=== PATIENT | male | born 1955 | race Caucasian/White ===

== ENCOUNTER 2025-09-14 08:48 | Day surgery (SDC) | payer MEDICARE, BC, SELFPAY ==
[2025-09-14] VITALS (13 sets, daily range): BP systolic 117–141; BP diastolic 78–94; PULSE 62–87; RESP 14–18; TEMP 36.3–37.1; O2SAT 93–99; BMI 28.2
[2025-09-14] MEDS: SODIUM CHLORIDE 0.9 % (FLUSH) 10 ML SYRINGE IVF (09:22)
[2025-09-14] MEDS: LACTATED RINGERS 1000 ML 1,000 ML 100 ML IV ×2 (09:22→13:17)
[2025-09-14] MEDS: BUPIVACAINE 0.25% 30 ML INJECTION (12:20)
--- NOTE | 2025-09-14 13:39 | P.ANES_ITS ---
Anesthesia Charges Start Date/Time Anesthesia Start Date: 09/14/25 Anesthesia Start Time: 11:44 Stop Date/Time Anesthesia Stop Date: 09/14/25 Anesthesia Stop Time: 13:50 Coding CPT Codes CPT Codes: ANESTH SURG LOWER ABDOMEN - 12604 ([id number]) P3 - PATIENT W/SEVERE SYS DISEASE, QK - SUPERVISOR MAINTENANCE 2-4 CNCRNT ANES PROC, QX - HORTICULTURAL TECHNICAL OFFICER SVC W/ MD MED DIRECTION
--- NOTE | 2025-09-14 13:39 | W.ANESCHARGE ---
Anesthesia Charges Start Date/Time Anesthesia Start Date: 09/14/25 Anesthesia Start Time: 11:44 Stop Date/Time Anesthesia Stop Date: 09/14/25 Anesthesia Stop Time: 13:50 Coding CPT Codes CPT Codes: ANESTH SURG LOWER ABDOMEN - 02690 ([id number]) P3 - PATIENT W/SEVERE SYS DISEASE, QK - PRINTING PRESS OPERATOR 2-4 CNCRNT ANES PROC, QX - NURSING CARE ATTENDANT SVC W/ MD MED DIRECTION
--- NOTE | 2025-09-14 13:54 | W.ANESCHARGE ---
Anesthesia Charges Start Date/Time Anesthesia Start Date: 09/14/25 Anesthesia Start Time: 11:44 Stop Date/Time Anesthesia Stop Date: 09/14/25 Anesthesia Stop Time: 13:50 Coding CPT Codes CPT Codes: ANESTH SURG LOWER ABDOMEN - 34192 ([id number]) P2 - PATIENT W/MILD SYST DISEASE
[2025-09-14] MEDS: HYDROCODONE-ACETAMIN 5-325 MG 1 TAB PO (15:17)
--- NOTE | 2025-09-14 16:31 | W.PM.H&PU ---
History & Physical Update History & Physical Update H&P Reviewed and patient assessed: No changes noted
--- NOTE | 2025-09-14 16:31 | PM.GSPRC ---
Operative Note Date of procedure: 09/14/25 Pre-op diagnosis: Right inguinal hernia Post-op diagnosis: Same, indirect Type of Procedure: Laparoscopic converted to open right inguinal hernia repair Indications: Patient is a 69-year-old male who presented to clinic with a symptomatic right inguinal hernia. Please see consultation note regarding full discussion of different treatment options. Risks and benefits of operative intervention were discussed at length with the patient. Risks included but was not limited to: Bleeding, infection, risk of damage to surrounding structures, possible need for additional procedures, possible need to convert to an open operation and postoperative complications such as pneumonia, pulmonary emboli or NV. All questions and concerns were addressed with the patient agreeing to proceed. Procedure Description: After discussing the risks and benefits of the procedure, the patient signed informed consent.? The operative site was marked and the patient was brought to the operating room and placed on the operating table in supine position.? Care was taken to pad the patient's pressure points.?? The patient was then intubated by anesthesia.?? The operative site was then prepped and draped in the usual sterile fashion.? A time-out was then performed. A curvilinear incision was made below the umbilicus. Dissection was carried down to subcutaneous tissue until the anterior rectus fascia was encountered. This was incised off the midline. The rectus muscles were then retracted exposing the posterior fascia. A space maker port with a dissecting balloon was then introduced. The preperitoneal space was inflated under direct vision. The balloon was then removed and the preperitoneal space insufflated. A 10 mm 30 degree scope was then advanced and the area was surveyed for bleeding. Very minimal dissection had occurred with the balloon secondary to the presence of scar tissue. Two additional 5 mm ports were placed within the midline. Using blunt dissection I attempted to create more space laterally just beneath the epigastric vessels. Again, this plane of dissection was difficult to develop secondary to scar tissue from the patient's previous surgery. A decision was made at this point to convert to an open operation secondary to inability to visualize the necessary structures to fix the hernia. All laparoscopic equipment was removed. The anterior fascia was closed with 0 Vicryl suture. The incisions were then closed with 4-0 Monocryl Steri-Strips were applied. Local anesthetic was injected into the skin and subcutaneous tissue overlying the inguinal canal. An oblique incision would was made over the external ring. Dissection was carried down into the subcutaneous tissue using cautery until the external oblique fascia was encountered. This was cleared off. The external ring was identified and after injection of more local anesthetic, the external oblique was incised using a knife. This was extended using the Metzenbaum scissors with care to dissect the underlying cord structures away before cutting. The cord was cleared from the inside of the inguinal canal and looped with a Juanita drain. A indirect inguinal hernia was identified. The hernia sac was carefully dissected off of the cord structures. The hernia sac was then freed down to the internal ring and able to be reduced into the abdomen. A piece of polypropylene mesh was obtained and cut to size. This was secured to the pubic tubercle using 2- 0 Prolene double-arm suture. The Prolene was run along the inguinal ligament and superiorly along the transversalis fascia securing the tails behind the cord, recreating the internal ring. A few additional stitches were placed near the pubic tubercle medially with 0 Nurolon suture. Wound was examined for hemostasis. The external oblique fascia was then reapproximated with absorbable suture. The wound was then closed in layers including Chris's fascia and the dermis with the cervical suture. The skin was then closed with a running subcuticular suture. Sterile dressings were applied. Instrument sponge and needle counts were correct at the end of the case. The patient was woken and taken to the PACU in stable condition. The patient was then woken and transported to the recovery area in stable condition. ? The patient tolerated the procedure well. Findings: Right indirect inguinal hernia Anesthesia: GETA Surgeon: Rae Hart MD Estimated blood loss (mL): 10 Condition: stable Disposition: PACU
== END 2025-09-14 15:17 | disposition home or self-care (01) ==
PROVIDERS: PCP Family Medicine; Visit Provider Surgery
PROC: (CPT 49650; principal; 2025-09-14 10:15)
DX: K40.90 Unilateral inguinal hernia, without obstruction or gangrene, not specified as recurrent (principal); Z53.31 Laparoscopic surgical procedure converted to open procedure
CPT/HCPCS: 49505; 00840; A9270; C1781; J0665; J0690; J1100; J1171; J2405; J2704; J3010; J3490; J7120